=== PATIENT | female | born 1995 | race Caucasian/White ===

== ENCOUNTER → 2016-10-17 | Outpatient (CLI) | payer OTHER ==
[2016-10-17 10:49] LABS: CH 33.5; CHCM 36.3; HCT 35.9 % (34.0-46.0); HDW 2.85; HGB 12.8 gm/dL (11.4-16.0); MCH 33.1 pg (25.0-35.0); MCHC 35.7 g/dL (31.0-37.0); MCV 92.7 fL (80.0-100.0); Mean Platelet Volume 7.2; RBC 3.87 m/uL (3.80-5.40); RDW 13.5 % (11.5-15.5); WBC 9.5 k/uL (3.8-10.6)
[2016-10-17 11:11] LABS: Glucose 84 mg/dL (74-99); Non-African American GFR(MDRD) >60 (>60 ml/min/1.73 sqM)
[2016-10-17 11:43] LABS: Hepatitis B Surface Ag Index 0.07
[2016-10-18 05:41] LABS: Toxoplasma Antibody (IgG) <3.0 IU/mL (<7.2)
== END | disposition home or self-care (01) ==
LOC: LABWHC1 10:09
PROVIDERS: ATTEND Obstetrics & Gynecology
DX: Z34.92 Encounter for supervision of normal pregnancy, unspecified, second trimester (principal)
CPT/HCPCS: 36415; 82565; 82947; 85027; 86762; 86777; 86778; 86780; 86850; 86900; 86901; 87340

== ENCOUNTER → 2016-12-05 | Outpatient (CLI) | payer OTHER ==
[2016-12-05 10:50] LABS: CH 33.2; CHCM 35.4; HCT 34.8 % (34.0-46.0); HDW 2.84; HGB 11.8 gm/dL (11.4-16.0); MCH 32.2 pg (25.0-35.0); MCV 94.5 fL (80.0-100.0); Mean Platelet Volume 7.2; RBC 3.68 m/uL (3.80-5.40); RDW 13.7 % (11.5-15.5); WBC 10.3 k/uL (3.8-10.6)
== END | disposition home or self-care (01) ==
LOC: LABWHC1 08:13
PROVIDERS: ATTEND Obstetrics & Gynecology
DX: Z34.82 Encounter for supervision of other normal pregnancy, second trimester (principal)
CPT/HCPCS: 36415; 82950; 85027

== ENCOUNTER 2017-01-28 09:14 | Outpatient (CLI) | payer OTHER ==
[2017-01-28 10:07] VITALS: BP 112/56; PULSE 95; RESP 18; TEMP 97.8
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
== END 2017-01-28 10:09 | disposition home or self-care (01) ==
LOC: FBPOP 09:14
PROVIDERS: ATTEND Obstetrics & Gynecology
DX: O36.8130 Decreased fetal movements, third trimester, not applicable or unspecified (principal); Z3A.34 34 weeks gestation of pregnancy
CPT/HCPCS: 59025; G0463; 99213

== ENCOUNTER 2017-02-15 05:50 | Outpatient (CLI) | payer OTHER ==
[2017-02-15 06:45] VITALS: BP 117/58; PULSE 77; RESP 18; TEMP 96.8
--- NOTE | 2017-04-29 08:40 | P.MSEPDOC ---
Presenting Problems - Arrival Data Date of Arrival on Unit: 02/15/17 Time of Arrival on Unit: 05:50 Mode of Transport: Wheelchair - Complaint OB-Reason for Admission/Chief Complaint: Possible Onset of Labor Medical History - Information : 2 Para: 1 Term: 1 : 0 Abortions: Spontaneous or Elective: 0 Number of Living Children: 1 - Gestational Age Gestational Age by PAULA (wks/days): 36 Weeks and 5 Days - History Complications: Smoker Review of Systems - Review of Systems Constitutional: No problems Breast: No problems ENT: No problems Cardiovascular: No problems Respiratory: No problems Gastrointestinal: No problems Genitourinary: No problems Musculoskeletal: No problems Neurological: No problems Skin: No problems Vital Signs - Temperature Temperature: 96.8 F Temperature Source: Temporal Artery Scan - Pulse Right Brachial Pulse Rate: 77 Pulse Assessment Method: Automatic Cuff - Respirations Respiratory Rate: 18 Oxygen Delivery Method: Room Air - Blood Pressure Right Arm Blood Pressure: 117/58 Blood Pressure Mean: 77 Blood Pressure Source: Automatic Cuff Medical Screen Scoring (Pre) - Cervical Exam Dilation: 1-3 cm = 1 Effacement: More than 50% = 2 Membranes: Intact - Uterine Contractions Frequency: > or = 36 weeks =2 Duration: > 40 seconds = 2 Intensity: N/A - Maternal Vital Signs Maternal Temperature: N/A Maternal Blood Pressure: N/A Signs of Preeclampsia: N/A Maternal Respirations: N/A - Maternal Trauma Maternal Trauma: N/A - Assessment Baseline FHR: 125 Heart Rate - NICHD Category: Category I (Normal) = 0 NST: Reactive Position: N/A Station: N/A - Total Score Total Score (Pre): 7 - Level of Risk Level of Risk: Medium (6-9) Physician Notification (Pre) - Physician Notified Physician Notified Date: 02/15/17 Physician Notified Time: 06:28 Physician/Practitioner Notifed:: Dr. Ny Spoke With: Dr. Ny New Order Received: Yes - Notification Comment Comment: recheck cervical exam in an hour and call with results Medical Screen Scoring (Post) - Cervical Exam Dilation: 1-3 cm = 1 - Uterine Contractions Frequency: > or = 36 weeks =2 Duration: > 40 seconds = 2 - Maternal Vital Signs Maternal Temperature: N/A Maternal Blood Pressure: N/A Signs of Preeclampsia: N/A Maternal Respirations: N/A - Maternal Trauma Maternal Trauma: N/A - Assessment Heart Rate: 125 Heart Rate - NICHD Category: Category I (Normal) = 0 NST: Reactive Position: N/A Station: N/A - Total Score Total Score (Post): 5 Physician Notification (Post) - Physician Notified Physician Notified Date: 02/15/17 Physician Notified Time: 07:15 Physician/Practitioner Notified:: Dr. Ny Spoke With: Dr. Ny New Order Received: Yes Disposition - Disposition OB Disposition: Discharge to home, Written follow up instructions reviewed Discharge Date: 02/15/17 Discharge Time: 07:21 I agree with the RN Medical Screening Exam: Yes Risk & Benefit of care provided described in d/c instruction: Yes Diagnosis: FALSE LABOR BEFORE 37 COMPLETED WEEKS OF GEST, THIRD TRI
== END 2017-02-15 07:21 | disposition home or self-care (01) ==
LOC: FBPOP 05:50
PROVIDERS: ATTEND Obstetrics & Gynecology
DX: O47.03 False labor before 37 completed weeks of gestation, third trimester (principal); Z3A.36 36 weeks gestation of pregnancy
CPT/HCPCS: 59025; G0463; 99213

== ENCOUNTER 2017-02-21 13:00 | Inpatient (IN) | payer OTHER ==
[2017-02-21] MEDS ORDERED: LIDOCAINE 1% (PF) 10 MG/ML (30 ML SDV) SQ PRN (13:33)
[2017-02-21] MEDS ORDERED: OXYTOCIN 10 UNIT/ML 1 ML VIAL IM PRN (13:33)
[2017-02-21] MEDS ORDERED: TERBUTALINE 1 MG/ML VIAL SQ PRN (13:33)
[2017-02-21] MEDS ORDERED: CARBOPROST TROMETHAMINE 250 MCG/ML 1 ML AMP IM PRN (13:33)
[2017-02-21] MEDS ORDERED: METHYLERGONOVINE 0.2 MG/ML 1 ML AMP IM PRN (13:33)
[2017-02-21] MEDS ORDERED: AMPICILLIN 2,000 MG in SODIUM CHLORIDE 0.9% 100 ML IVPB STA (13:35)
[2017-02-21] MEDS ORDERED: OXYTOCIN 20 UNITS/1000 ML NS 1,000 ML IV SCH ×2 (13:45→17:30)
[2017-02-21 13:46] LABS: Basophils % (A) 0 %; CH 33.7; CHCM 36.2; Eosinophils # (A) 0.2 k/uL (0-0.7); Eosinophils % (A) 2 %; HCT 35.2 % (34.0-46.0); HDW 3.24; HGB 12.3 gm/dL (11.4-16.0); Luc # (Auto) 0.17; Luc % (Auto) 2; Lymphocytes # (A) 1.6 k/uL (1.0-4.8); Lymphocytes % (A) 16 %; MCH 32.7 pg (25.0-35.0); MCHC 34.9 g/dL (31.0-37.0); MCV 93.8 fL (80.0-100.0); Monocytes # (A) 0.5 k/uL (0-1.0); Monocytes % (A) 5 %; Neutrophils # (A) 7.9 k/uL (1.3-7.7); Neutrophils % (A) 76 %; RBC 3.75 m/uL (3.80-5.40); RDW 13.8 % (11.5-15.5); WBC 10.4 k/uL (3.8-10.6)
[2017-02-21] MEDS: LACTATED RINGERS 1,000 ML IV SCH ×2 (13:59→14:42)
[2017-02-21] MEDS ORDERED: fentaNYL (PF) 50 MCG/ML 5 ML AMP ONE (14:10)
[2017-02-21] MEDS ORDERED: BUPIVACAINE (PF) 0.25% 30 ML VIAL ONE (14:10)
[2017-02-21] MEDS ORDERED: SODIUM CHLORIDE 0.9% 100 ML BAG ONE (14:10)
[2017-02-21 15:06] VITALS: BMI 27.0
--- NOTE | 2017-02-21 17:18 | P.PROBDLV ---
Vaginal Delivery Note - . Vaginal Delivery Note: 21-year-old presented at 37 weeks and 1 day in labor and with spontaneous rupture membranes at 11:30 AM. She is 4-5 cm dilated, 80% effaced, -2 station. She is jason every 2 minutes. heart tones 135-140 with moderate variability and reactive. On admission she did get an epidural and was started on antibiotics for GBS positive status. She progressed to complete at 1643. She pushed and delivered a viable male over intact perineum under epidural anesthesia at 1657. Head delivered OA, anterior shoulder which was the left shoulder, delivered gentle downward traction followed by posterior shoulder and rest of body. Nose and mouth bulb suctioned, cord clamped and cut , infant placed on mother's abdomen. Apgars 8, 9, weight 6 lbs. 4 oz. Placenta delivered spontaneously, intact with three-vessel cord at 1701. Vagina , cervix, and perineum were inspected. Bilateral labial lacerations repaired with 3-0 Vicryl. Estimated blood loss 150 mL. Mother and baby in stable condition.
--- NOTE | 2017-02-21 17:25 | P.HPOB ---
History of Present Illness H&P Date: 02/21/17 Chief Complaint: SROM, Labor 21-year-old presents at 37 weeks and 1 day was spent case rupture membranes at 11:30 in the morning and in labor. Her cervix is 4-5 cm dilated, 80% effaced, -2 station. She is also jason every 2 minutes. heart tones 135-140 with moderate variability and reactive. Review of Systems All systems: negative Constitutional: Denies chills, Denies fever Eyes: denies blurred vision, denies pain Ears, nose, mouth and throat: Denies headache, Denies sore throat Cardiovascular: Denies chest pain, Denies shortness of breath Respiratory: Denies cough Gastrointestinal: Denies abdominal pain, Denies diarrhea, Denies nausea, Denies vomiting Genitourinary: Denies dysuria, Denies hematuria Musculoskeletal: Denies myalgias Integumentary: Denies pruritus, Denies rash Neurological: Denies numbness, Denies weakness Psychiatric: Denies anxiety, Denies depression Endocrine: Denies fatigue, Denies weight change Past Medical History Past Medical History: No Reported History Additional Past Medical History / Comment(s): Obstetric history: First was a vaginal delivery at 40 weeks, 6 lbs. 6 oz. This is her second . She's had care with Dr. Abbott since 11 weeks gestation. She 's been quite noncompliant with her care skipping several appointments between 29 and 35 weeks. O+, hepatitis B negative, toxoplasmosis negative, Treponemal antibody negative, normal 1 hour, GBS positive. History of Any Multi-Drug Resistant Organisms: None Reported Past Surgical History: No Surgical Hx Reported Past Anesthesia/Blood Transfusion Reactions: No Reported Reaction Past Psychological History: No Psychological Hx Reported Smoking Status: Current every day smoker Past Alcohol Use History: None Reported Past Drug Use History: None Reported - Past Family History Mother Family Medical History: No Reported History Medications and Allergies Home Medications Medication Instructions Recorded Confirmed Type Pnv,Calcium 72/Iron/Folic Acid 1 tab PO DAILY 02/15/17 02/15/17 History [ Plus Tablet] Allergies Allergy/AdvReac Type Severity Reaction Status Date / Time No Known Allergies Allergy Verified 02/15/17 06:02 Exam Osteopathic Statement: *. No significant issues noted on an osteopathic structural exam other than those noted in the History and Physical/Consult. - Vital Signs Vital signs: Vital Signs Temp Pulse Resp BP Pulse Ox 02/21/17 13:14 97.5 F L 75 20 107/73 100 Intake and Output 02/21/17 02/21/17 02/21/17 06:59 14:59 22:59 Other: Weight 64.864 kg Patient Weight 02/22/17 06:59 Weight 64.864 kg Heart: Regular rate and rhythm Lungs: Clear to auscultation bilaterally Abdomen: Soft, nontender Extremities: Negative Homans sign Results Result Diagrams: 02/21/17 13:35 Abnormal Lab Results - Last 24 Hours (Table) 02/21/17 Range/Units 13:35 RBC 3.75 L (3.80-5.40) m/uL Neutrophils # 7.9 H (1.3-7.7) k/uL Assessment and Plan (1) Spontaneous rupture of membranes Status: Acute (2) Normal labor Status: Acute Plan: 1. Admit to family 2. Expectant management 3. Anticipate normal vaginal delivery
[2017-02-21] MEDS ORDERED: ACETAMINOPHEN TAB 325 MG TAB PO PRN (17:26)
[2017-02-21] MEDS ORDERED: ZOLPIDEM 5 MG TAB PO PRN (17:26)
[2017-02-21] MEDS ORDERED: diphenhydrAMINE 50 MG/ML 1 ML VIAL IVP PRN ×2 (17:26)
[2017-02-21] MEDS ORDERED: diphenhydrAMINE 25 MG CAP PO PRN (17:26)
[2017-02-21] MEDS ORDERED: Acetaminophen-Codeine 300-30mg TAB PO PRN ×2 (17:26)
[2017-02-21] MEDS ORDERED: diphenhydrAMINE 50 MG CAP PO PRN (17:26)
[2017-02-21] MEDS ORDERED: WITCH HAZEL 1 EACH MED..PAD TOPICAL PRN (17:26)
[2017-02-21] MEDS ORDERED: BENZOCAINE/MENTHOL SPRAY 1 GM/SPRAY AEROSOL TOPICAL PRN (17:26)
[2017-02-21] MEDS ORDERED: LANOLIN CREAM 5 GM TUBE TOPICAL PRN (17:26)
[2017-02-21] MEDS ORDERED: SIMETHICONE 80 MG CHEWABLE PO PRN (17:26)
[2017-02-21] MEDS ORDERED: HYDROCORTISONE 2.5% RECTAL CREAM 30 GM TUBE RECTAL PRN (17:26)
[2017-02-21] MEDS ORDERED: AMPICILLIN 1,000 MG in SODIUM CHLORIDE 0.9% 50 ML IVPB SCH (18:00)
[2017-02-22] MEDS: SENNOSIDES-DOCUSATE SODIUM 1 EACH TAB PO SCH ×3 (00:21→23:19)
[2017-02-22] MEDS: IBUPROFEN 600 MG TAB PO PRN ×3 (08:26→23:18)
--- NOTE | 2017-02-22 12:19 | P.PNOBGVD ---
Subjective - Subjective Principal diagnosis: Status post normal vaginal delivery day #1 Interval history: Patient seen and examined. Denies nausea, vomiting, chest pain, shortness of breath or calf pain. Voiding without difficulty. Patient reports: Reports appetite normal, Reports voiding normally, Reports pain well controlled, Reports ambulating normally : doing well Objective - Latest Vital Signs Latest vital signs: Vital Signs Temp Pulse Resp BP Pulse Ox 02/22/17 08:00 97.8 F 67 18 104/57 02/22/17 03:58 97.6 F 76 16 111/69 02/21/17 23:30 98.1 F 63 14 93/57 02/21/17 19:15 98.8 F 82 16 107/53 02/21/17 18:44 81 18 113/57 02/21/17 18:15 97.6 F 81 18 116/58 02/21/17 18:00 81 18 141/58 02/21/17 17:45 98.5 F 81 18 101/55 02/21/17 17:30 98.3 F 84 16 101/59 02/21/17 17:15 98.3 F 86 18 94/63 02/21/17 13:14 97.5 F L 75 20 107/73 100 Intake and Output 02/21/17 02/22/17 02/22/17 22:59 06:59 14:59 Intake Total 1999 Balance 1999 Intake: Intake, IV Titration 1999 Amount Oxytocin 20 Units/1000 ml 1000 Ns 1,000 ml @ 1 MILLIUNIT/MIN 3 mls/hr IV .Q24H KAREEN Rx#:[id number] Oxytocin 20 Units/1000 ml 1000 Ns 1,000 ml @ Per Protocol IV .Q0M KAREEN Rx#: [id number] Other: # Voids 2 1 1 - Exam Lungs: bilateral: normal Chest: Normal S1, Normal S2 Extremities: Present: normal Abdomen: Present: normal appearance, soft Uterus: Present: normal, firm - Labs Labs: Abnormal Lab Results - Last 24 Hours (Table) 02/21/17 Range/Units 13:35 RBC 3.75 L (3.80-5.40) m/uL Neutrophils # 7.9 H (1.3-7.7) k/uL Assessment and Plan (1) Spontaneous rupture of membranes Current Visit: Yes Status: Resolved Code(s): PGU7454 - SNOMED Code(s): 380830709 (2) Normal labor Current Visit: Yes Status: Resolved Code(s): O80 - ENCOUNTER FOR FULL-TERM UNCOMPLICATED DELIVERY; Z37.9 - OUTCOME OF DELIVERY, UNSPECIFIED SNOMED Code(s ): 10284420 (3) Status post normal vaginal delivery Narrative/Plan: 1. Continue care Current Visit: Yes Status: Acute Code(s): [id number] - SNOMED Code(s): 917816255
[2017-02-23] MEDS: IBUPROFEN 600 MG TAB PO PRN (07:46)
[2017-02-23 08:08] VITALS: BP 99/52; PULSE 59; RESP 16; TEMP 97.9
[2017-02-23] MEDS: SENNOSIDES-DOCUSATE SODIUM 1 EACH TAB PO SCH (08:09)
--- NOTE | 2017-02-23 09:42 | P.DS ---
Providers Date of admission: 02/21/17 13:26 Expected date of discharge: 02/23/17 Attending physician: Ngein Abbott Primary care physician: Stated None - Discharge Diagnosis(es) (1) Spontaneous rupture of membranes Current Visit: Yes Status: Resolved (2) Normal labor Current Visit: Yes Status: Resolved (3) Status post normal vaginal delivery Current Visit: Yes Status: Acute Hospital Course: Patient presented in labor. She underwent normal vaginal delivery. Her course was uncomplicated. She'll be discharged home day # 2 in stable condition to follow-up with Dr. Abbott and 6 weeks. Plan - Discharge Summary New Discharge Prescriptions: New Acetaminophen-Codeine 300-30mg [Tylenol w/codeine #3] 2 each PO Q4HR PRN #30 tab PRN Reason: Moderate To Severe Pain Ibuprofen [Motrin] 600 mg PO Q6HR PRN #30 tab PRN Reason: Mild Pain Or Fever >= 100.5 No Action Pnv,Calcium 72/Iron/Folic Acid [ Plus Tablet] 1 tab PO DAILY Discharge Medication List Pnv,Calcium 72/Iron/Folic Acid [ Plus Tablet] 1 tab PO DAILY 02/15/17 [ History] Acetaminophen-Codeine 300-30mg [Tylenol w/codeine #3] 2 each PO Q4HR PRN #30 tab 02/23/17 [Rx] Ibuprofen [Motrin] 600 mg PO Q6HR PRN #30 tab 02/23/17 [Rx] Follow up Appointment(s)/Referral(s): Luly Solares DO [Doctor of Osteopathic Medicine] - 6 Weeks
== END 2017-02-23 14:34 | disposition home or self-care (01) | DRG 775 ==
LOC: FBPOP 13:00 → 4FBP 13:26
PROVIDERS: ADMIT Obstetrics & Gynecology; ATTEND Obstetrics & Gynecology
PROC: 10E0XZZ Delivery of Products of Conception, External Approach (ICD-10-PCS; principal; 2017-02-21)
PROC: 00HU33Z Insertion of Infusion Device into Spinal Canal, Percutaneous Approach (ICD-10-PCS; 2017-02-21)
PROC: 3E0R3NZ Introduction of Analgesics, Hypnotics, Sedatives into Spinal Canal, Percutaneous Approach (ICD-10-PCS; 2017-02-21)
PROC: 0UQMXZZ Repair Vulva, External Approach (ICD-10-PCS; 2017-02-21)
DX: O99.824 Streptococcus B carrier state complicating childbirth (principal); F17.200 Nicotine dependence, unspecified, uncomplicated; O70.0 First degree perineal laceration during delivery; O99.334 Smoking (tobacco) complicating childbirth; Z37.0 Single live birth; Z3A.37 37 weeks gestation of pregnancy; Z91.19 Patient's noncompliance with other medical treatment and regimen
CPT/HCPCS: 59025; 84112; 85025; 88307; 99213

== ENCOUNTER 2019-12-05 13:01 | Emergency (ER) | payer OTHER ==
[2019-12-05 13:08] VITALS: BP 128/81; PULSE 110; RESP 18; TEMP 98.1
[2019-12-05] MEDS ORDERED: ACET/COD 300 MG/30 MG STARTER PACK 6 TAB BTL PO STA (13:27)
--- NOTE | 2019-12-05 13:29 | ED ---
General Adult HPI - General Chief complaint: Back Pain/Injury Stated complaint: RT sided flank pain Time Seen by Provider: 12/05/19 13:09 Source: patient, RN notes reviewed Mode of arrival: ambulatory Limitations: no limitations - History of Present Illness Initial comments: 23-year-old female presents to the emergency department for a chief complaint of back pain. Patient states she has had back pain since she was 10 years old. Patient states that throughout the years it has been worsening. Patient states it worsened even more after she had 2 children. Patient states the pain always radiates down her right leg. Patient states she did see a doctor about this several years ago but never followed up. Since today for evaluation of this back pain. Patient states it starts in her lower back radiates down her right buttock and down past her right knee. She denies any weakness of the lower extremities. Denies any bladder or bowel changes. Denies numbness or tingling of the groin or buttock. Patient denies fevers or history of IV drug abuse. Patient states the pain worsened a couple months ago but has been consistent since that time. Patient able to ambulate although has pain with ambulation.Patient has no other complaints at this time including shortness of breath, chest pain, abdominal pain, nausea or vomiting, headache, or visual changes. - Related Data Home Medications Medication Instructions Recorded Confirmed Pnv,Calcium 72/Iron/Folic Acid 1 tab PO DAILY 02/15/17 02/15/17 [ Plus Tablet] Previous Rx's Medication Instructions Recorded Acetaminophen-Codeine 300-30mg 2 each PO Q4HR PRN #30 tab 02/23/17 [Tylenol w/codeine #3] Ibuprofen [Motrin] 600 mg PO Q6HR PRN #30 tab 02/23/17 predniSONE 50 mg PO DAILY #5 tablet 12/05/19 Allergies Allergy/AdvReac Type Severity Reaction Status Date / Time No Known Allergies Allergy Verified 12/05/19 13:07 Review of Systems ROS Statement: Those systems with pertinent positive or pertinent negative responses have been documented in the HPI. ROS Other: All systems not noted in ROS Statement are negative. Past Medical History Past Medical History: No Reported History Additional Past Medical History / Comment(s): Obstetric history: First was a vaginal delivery at 40 weeks, 6 lbs. 6 oz. This is her second . She's had care with Dr. Abbott since 11 weeks gestation. She's been quite noncompliant with her care skipping several appointments between 29 and 35 weeks. O+, hepatitis B negative, toxoplasmosis negative, Treponemal antibody negative, normal 1 hour, GBS positive. History of Any Multi-Drug Resistant Organisms: None Reported Past Surgical History: No Surgical Hx Reported Past Anesthesia/Blood Transfusion Reactions: No Reported Reaction Past Psychological History: No Psychological Hx Reported Smoking Status: Current every day smoker Past Alcohol Use History: None Reported Past Drug Use History: None Reported - Past Family History Mother Family Medical History: No Reported History General Exam Limitations: no limitations General appearance: alert, in no apparent distress Head exam: Present: atraumatic, normocephalic, normal inspection Eye exam: Present: normal appearance, PERRL, EOMI. Absent: scleral icterus, conjunctival injection, periorbital swelling ENT exam: Present: normal exam, mucous membranes moist Neck exam: Present: normal inspection, full ROM. Absent: tenderness, meningismus, lymphadenopathy Respiratory exam: Present: normal lung sounds bilaterally. Absent: respiratory distress, wheezes, rales, rhonchi, stridor Cardiovascular Exam: Present: regular rate, normal rhythm, normal heart sounds. Absent: systolic murmur, diastolic murmur, rubs, gallop, clicks GI/Abdominal exam: Present: soft, normal bowel sounds. Absent: distended, tenderness, guarding, rebound, rigid Extremities exam: Present: normal capillary refill (Capillary refill. Seconds the right lower extremity, DP pulse 2+. Sensation intact right lower extremity.) Back exam: Present: paraspinal tenderness (She has tenderness along the right SI joint area. She has tenderness of the right sciatic notch. She has full range of motion of the right leg. Patient has pain with extension of the lumbar spine but has full flexion intact.). Absent: CVA tenderness (R), CVA tenderness (L) Course Vital Signs 12/05/19 13:05 Temperature 98.1 F Pulse Rate 110 H Respiratory 18 Rate Blood Pressure 128/81 O2 Sat by Pulse 99 Oximetry Medical Decision Making - Medical Decision Making Vitals are stable. Patient fully tachycardic although is in pain and anxious. She presents for chronic back pain. Neurovascular status intact in the right lower extremity. No red flag symptoms. Pain has been ongoing since she was 10 years old. Patient ambulatory in the emergency room. Patient will be started on steroids. I did offer IM injection but she states she is afraid of needles. She denied Toradol as well. Patient will continue Motrin use at home. She also be given small strip for Tylenol 3. I discussed she needs MRI from orthopedics for further evaluation of this pain and what is specifically causing it. Patient is agreeable to this. She will call tomorrow. She'll return for any worsening symptoms. Disposition Clinical Impression: Back pain, Radiculopathy Disposition: HOME SELF-CARE Condition: Good Instructions (If sedation given, give patient instructions): Sciatica (ED), Acute Low Back Pain (ED) Additional Instructions: Please take Motrin and steroid as directed. If pain is severe take Tylenol [address] machinery while taking this. Follow up with orthopedics by calling tomorrow for next available appointment. Return to the emergency department for any worsening symptoms. These would include weakness of the lower extremities, bladder or bowel changes, numbness of the saddle region, or fevers. Prescriptions: predniSONE 50 mg PO DAILY #5 tablet Is patient prescribed a controlled substance at d/c from ED?: No Referrals: Melinda Avalos DO [Doctor of Osteopathic Medicine] - 1-2 days Time of Disposition: 13:28
== END 2019-12-05 13:42 | disposition home or self-care (01) ==
LOC: EC 13:01
DX: M54.10 Radiculopathy, site unspecified (principal); R00.0 Tachycardia, unspecified; G89.29 Other chronic pain; M54.9 Dorsalgia, unspecified; F17.200 Nicotine dependence, unspecified, uncomplicated; Z53.29 Procedure and treatment not carried out because of patient's decision for other reasons
CPT/HCPCS: 99283

== ENCOUNTER 2021-06-25 16:00 | Emergency (ER) | payer OTHER ==
[2021-06-25 18:24] VITALS: RESP 18; TEMP 98.1
--- NOTE | 2021-06-25 19:33 | ED ---
General Adult HPI - General Chief complaint: Upper Respiratory Infection Stated complaint: vomiting/nausea/sob/sweats/headaches/fever Time Seen by Provider: 06/25/21 18:55 Source: patient, RN notes reviewed, old records reviewed Mode of arrival: ambulatory Limitations: no limitations - History of Present Illness Initial comments: Patient is a 25-year-old female who presents emergency Department seeking Covid swab over concern for Covid-like symptoms. She is endorsing upper respiratory symptoms, admit and joint pain, intermittent nausea and vomiting. She is also 8 weeks . She states she is able tolerate oral intake. She is not vaccinated for COVID-19. She has been around others but no known confirmed exposures. Was concerned that she may have Covid which is why she presents for evaluation. Denies any shortness breath, chest pain. No history of blood clots. No increased work of breathing. Primary complaint is cough as well as upper respiratory symptoms. She seeking COVID-19 swab. Initial workup was completed by triage. I evaluated her when she was placed in a room. - Related Data Previous Rx's Medication Instructions Recorded Azithromycin [Zithromax Z-pack (6 0 mg PO DIRECTED 5 Days #6 tab 06/25/21 tabs)] Allergies Allergy/AdvReac Type Severity Reaction Status Date / Time No Known Allergies Allergy Verified 06/25/21 20:23 Review of Systems ROS Statement: Those systems with pertinent positive or pertinent negative responses have been documented in the HPI. Review of Systems: CONST: Denies fever EYES: Denies blurry vision ENT: Endorses nasal congestion, cough C/V: Denies Chest pain RESP: Denies shortness of breath GI: Denies abdominal pain : Denies dysuria SKIN: Denies rash. MSK: Denies joint pain. NEURO: Denies headache ROS Other: All systems not noted in ROS Statement are negative. Past Medical History Past Medical History: No Reported History Additional Past Medical History / Comment(s): Obstetric history: First was a vaginal delivery at 40 weeks, 6 lbs. 6 oz. This is her second . She's had care with Dr. Abbott since 11 weeks gestation. She's been quite noncompliant with her care skipping several appointments between 29 and 35 weeks. O+, hepatitis B negative, toxoplasmosis negative, Treponemal antibody negative, normal 1 hour, GBS positive. History of Any Multi-Drug Resistant Organisms: None Reported Past Surgical History: No Surgical Hx Reported Past Anesthesia/Blood Transfusion Reactions: No Reported Reaction Past Psychological History: No Psychological Hx Reported Smoking Status: Current every day smoker Past Alcohol Use History: None Reported Past Drug Use History: Marijuana - Past Family History Mother Family Medical History: No Reported History General Exam - General Exam Comments Initial Comments: General: Appears in no acute distress. HEAD: Normal with no signs of head trauma. EYES: PERRLA, EOMI, conjunctiva normal, no discharge. ENT: Hearing grossly intact, normal oropharynx. RESPIRATORY: Clear breath sounds bilaterally. No wheezes, rales, or rhonchi. No increased work of breathing. No hypoxia. C/V: Regular rate and rhythm. S1 and S2 auscultated, no edema, peripheral pulses 2+ and intact throughout ABD: Abd is soft, nontender, nondistended EXT: Normal range of motion, no obvious deformity SKIN: No rashes or lesions observed on exposed skin. NEURO: Alert and oriented 4. Limitations: no limitations Course Vital Signs 06/25/21 06/25/21 06/25/21 18:20 20:00 20:42 Temperature 98.1 F 98.1 F Pulse Rate 73 66 Respiratory 18 18 18 Rate Blood Pressure 106/56 125/70 O2 Sat by Pulse 100 99 Oximetry Medical Decision Making - Medical Decision Making Based on the patient's presentation and physical exam, I'm concerned for possible upper respiratory illness at this time. His the current COVID-19 pandemic and she is not vaccinated and was requesting Covid swab. This was completed in triage was negative. Due to her persistent cough as well as nasal congestion, I would like to also obtain a chest x-ray to which she was in agreement with. She has follow-up for her . She has no acute complaints at this time. Further laboratory studies and imaging are not required at this time. Covid swab was negative. Chest x-ray showed no acute cardiopulmonary process. I discussed results with the patient. I believe it is safer to be discharged home. She was in agreement this plan. I will provide the patient with a prescription for Z-Oliver. I instructed the patient to follow up with their PCP in the next 3 days. [I provided contact information for follow up with] Dr. Gamboa for a PCP. I explained that the patient should return to the emergency department if they experience any worsening symptoms. Strict return precautions were discussed with the patient. The patient expressed understanding of these instructions. I answered all questions that the patient had. The patient was discharged home in fair condition with their prescriptions and follow up information. - Lab Data Lab Results 06/25/21 Range/Units 18:25 Coronavirus (PCR) Not Detected (Not Detectd) Disposition Clinical Impression: URI (upper respiratory infection) Disposition: HOME SELF-CARE Condition: Fair Instructions (If sedation given, give patient instructions): Upper Respiratory Infection (ED) Prescriptions: Azithromycin [Zithromax Z-pack (6 tabs)] 0 mg PO DIRECTED 5 Days #6 tab Is patient prescribed a controlled substance at d/c from ED?: No Referrals: None,Stated [Primary Care Provider] - 1-2 days Liat Gamboa MD [STAFF PHYSICIAN] - 1-2 days
--- NOTE | 2021-06-25 20:07 | XR ---
EXAMINATION TYPE: XR chest 2V DATE OF EXAM: 06/25/2021 8:01 PM COMPARISON:None CLINICAL INDICATION:Female, 25 years old with history of cough; TECHNIQUE: Frontal and lateral views of the chest. FINDINGS: Lungs/Pleura: There is no evidence of pleural effusion, focal consolidation, or pneumothorax. Pulmonary vascularity: Unremarkable. Heart/mediastinum: Cardiomediastinal silhouette is unremarkable. Musculoskeletal: No acute osseous pathology. IMPRESSION: No acute cardiopulmonary disease/process.
[2021-06-25 20:48] VITALS: BP 125/70; PULSE 66
== END 2021-06-25 20:47 | disposition home or self-care (01) ==
LOC: EC 16:00
DX: O99.511 Diseases of the respiratory system complicating pregnancy, first trimester (principal); J06.9 Acute upper respiratory infection, unspecified; Z20.822 Contact with and (suspected) exposure to COVID-19; O99.331 Smoking (tobacco) complicating pregnancy, first trimester; F17.200 Nicotine dependence, unspecified, uncomplicated; O99.321 Drug use complicating pregnancy, first trimester; F12.90 Cannabis use, unspecified, uncomplicated; Z3A.08 8 weeks gestation of pregnancy
CPT/HCPCS: 71046; 87635; 99284